=== PATIENT | female | born 1990 | race Caucasian/White ===

== ENCOUNTER 2019-08-09 01:56 | Emergency (ER) | payer MEDICARE, OTHER ==
[~2019-08-09] VITALS: Ht 149.9 cm; Wt 44.5 kg
--- NOTE | 2019-08-09 02:20 | PHYS DOC ---
Past History Past Medical History: No Pertinent History Past Surgical History: Alcohol Use: None Adult General Chief Complaint Chief Complaint: VAGINAL BLEEDING ...." I started having cramping like a peroid.. and I think I am about 5 to 7 weeks ... and I started bleeding tonight... " HPI HPI Patient is a 29 year old female who presents with above hx and complaints of vaginal spotting. Pt. estimates she is 7 weeks by her phone computer calculations. Pt. follows with Dr. Morse. This will be patient's third .. Her two previously pregnancies were delivered by . One due to breech presentation, both pregnancies had decelerations with the contractions and required urgent C-sections. Both pregnancies had dysfunctional bleeding during the course of the . Patient has had approximately 3 lifetime sex partners. Has had 1 previous episode of chlamydia infection. Patient had 1 abnormal Pap exam- follow-up after treatments showed no abnormal cells.. Patient has had recent sexual intercourse including use a inter-vaginal vibrator. Patient has started vitamins. There is no family history coagulopathy, however patient has had problems with bleeding after C-sections. Patient denies history immunosuppression. No recent travel. No history of trauma. Review of Systems Review of Systems Constitutional: Denies fever or chills [] Eyes: Denies change in visual acuity, redness, or eye pain [] HENT: Denies nasal congestion or sore throat [] Respiratory: Denies cough or shortness of breath [] Cardiovascular: No additional information not addressed in HPI [] GI: Complaints of abdominal pain- crampin, and vaginal spotting, Pt. denies nausea, vomiting, bloody stools or diarrhea [] : Denies dysuria or hematuria [] Musculoskeletal: Denies back pain or joint pain [] Integument: Denies rash or skin lesions [] Neurologic: Denies headache, focal weakness or sensory changes [] Endocrine: Denies polyuria or polydipsia [] All other systems were reviewed and found to be within normal limits, except as documented in this note. Family History Family History Noncontributory Current Medications Current Medications See nursing for home meds Allergies Allergies Allergies Coded Allergies Type Severity Reaction Last Updated Verified No Known Drug Allergies 08/09/19 No Physical Exam Physical Exam Constitutional: Mild emotional distress, non-toxic appearance. [] HENT: Normocephalic, atraumatic, bilateral external ears normal, oropharynx moist, no oral exudates, nose normal. [] Eyes: PERRLA, EOMI, conjunctiva normal, no discharge. [] Neck: Normal range of motion, no tenderness, supple, no stridor. [] Cardiovascular:Heart rate regular rhythm, no murmur [] Lungs & Thorax: Bilateral breath sounds equal at apex auscultation [] Abdomen: Bowel sounds normal, soft, mild pelvic tenderness, no masses, no pulsatile masses. Old scar. Vaginal exam shows some spotting from os and some old blood. Mildly abnormal cervix. Rectal hard stool in rectal vault. Skin: Warm, dry, no erythema, no rash. [] Back: No tenderness, no CVA tenderness. [] Extremities: No tenderness, no cyanosis, no clubbing, ROM intact, no edema. [] DTRs are +2 at patella and brachial. No Psoas sign. Neurologic: Alert and oriented X 3, normal motor function, normal sensory function, no focal deficits noted. [] Psychologic: Affect anxious, judgement normal, mood normal. [] Current Patient Data Vital Signs Vital Signs Date Time Temp Pulse Resp B/P (MAP) Pulse Ox O2 Delivery O2 Flow Rate FiO2 08/09/19 02:02 98.3 71 16 113/74 (87) 96 Room Air EKG EKG [] Radiology/Procedures Radiology/Procedures [][address] [address] IMAGING REPORT Signed PATIENT: HAROON MELO ACCOUNT: [id number] : 1990 LOCATION: ER AGE: 29 SEX: F EXAM STATUS: REG ER ORD. PHYSICIAN: PAUL JORGE MD REASON: Est. 5-7 weeks gravid, bleeding, cramping PROCEDURE: PREG 1ST TRIMESTER OB ultrasound less than 14 weeks and transvaginal OB ultrasound HISTORY: Vaginal bleeding and positive test Sonographic examination of the was perform a transabdominal and endovaginal technique. Multiple static images were obtained OB ultrasound less than 14 weeks transabdominal: The uterus appears normal. The endometrium measures 9 mm in thickness. The junctional zone is discrete. There is no gestational sac. The ovaries appear normal with normal blood flow. Transvaginal OB ultrasound: There is no seen. IMPRESSION: No sonographic evidence of . Recommend correlation with serial quantitative beta hCG. This could be an early or blighted ovum or miscarriage. If the continues a short-term follow-up ultrasound must be performed in order to document a viable intrauterine . Electronically signed by: Refugio Medrano III, MD (08/09/2019 3:59 AM) [id number] DICTATED AND SIGNED BY: REFUGIO MEDRANO III, MD DATE: 08/09/19 0359 CC: PAUL JORGE MD; JODI MORSE MD ~ Course & Med Decision Making Course & Med Decision Making Pertinent Labs and Imaging studies reviewed. (See chart for details) Patient continue pad counts. Patient to follow-up with primary care. Patient take vitamins. Patient follow-up pending cultures. Allow pelvic rest. Pt. to have repeat B-HCG in three days. Take only tylenol for pain. Must follow-up Pt. to take US disc to her OB for furter comparisons. [] Impression- 1. Threaten 2. Anemia Hgb. 11.7\\ 3. B -HCG = 32 4. Blood Type O + Dragon Disclaimer Dragon Disclaimer This electronic medical record was generated, in whole or in part, using a voice recognition dictation system. Departure Departure: Disposition: HOME/RESIDENCE PRIOR TO ADM Condition: STABLE Referrals: JODI MORSE MD (PCP) [place] Disclaimer This chart was dictated in whole or in part using Voice Recognition software in a busy, high-work load, and often noisy Emergency Department environment. It may contain unintended and wholly unrecognized errors or omissions. PAUL JORGE MD Aug 09, 2019 02:20
[2019-08-09] MEDS ORDERED: IV RINGERS SOLUTION,LACTATED 1,000 ML IV SCH (03:00)
[2019-08-09 03:26] LABS: CALCIUM 9.5 mg/dL (8.5-10.1); CREATININE 0.5 mg/dL (0.6-1.0); GFR 146.9; POTASSIUM 3.9 mmol/L (3.5-5.1)
[2019-08-09 03:28] LABS: BARBITURATES NEG (NEG); BENZODIAZEPINES NEG (NEG); CANNABINOIDS NEG (NEG); COCAINE NEG (NEG); METHADONE NEG (NEG); OPIATES POS (NEG); PHENCYCLIDINE NEG (NEG)
[2019-08-09 03:32] LABS: ALBUMIN 3.9 g/dL (3.4-5.0); DIRECT BILIRUBIN 0.1 mg/dL (0.0-0.2); TOTAL BILIRUBIN 0.2 mg/dL (0.2-1.0); TOTAL PROTEIN 7.5 g/dL (6.4-8.2)
[2019-08-09 03:34] LABS: BASO % 1 % (0-3); EOS # 0.3 x10^3/uL (0.0-0.7); EOS % 3 % (0-3); HEMATOCRIT 35.3 % (36.0-47.0); HEMOGLOBIN 11.7 g/dL (12.0-15.5); LYMPH # 3.5 x10^3/uL (1.0-4.8); LYMPH % 37 % (24-48); MEAN CORPUSCULAR HEMOGLOBIN 30 pg (25-35); MEAN CORPUSCULAR HGB CONC 33 g/dL (31-37); MEAN CORPUSCULAR VOLUME 91 fL (79-100); MONO # 0.8 x10^3/uL (0.0-1.1); MONO % 8 % (0-9); NEUT # 4.9 x10^3uL (1.8-7.7); NEUT % 52 % (31-73); PLATELET COUNT 387 x10^3/uL (140-400); RED BLOOD COUNT 3.91 x10^6/uL (3.50-5.40); WHITE BLOOD COUNT 9.5 x10^3/uL (4.0-11.0)
[2019-08-09 03:36] LABS: BACTERIA,URINE 0 /HPF (0-FEW); BILIRUBIN,URINE NEG (NEG); CLARITY,URINE HAZY; COLOR,URINE YELLOW; GLUCOSE,URINE NEG (NEG); NITRITE,URINE NEG (NEG); RBC,URINE >40 /HPF (0-2); SQUAMOUS EPITHELIAL CELL,UR FEW /LPF; UROBILINOGEN,URINE 0.2 mg/dL (0.2 mg/dL); WBC,URINE OCC /HPF (0-4)
[2019-08-09 03:41] LABS: AMPHETAMINE/METHAMPHETAMINE NEG (NEG)
--- NOTE | 2019-08-09 04:02 | RAD ---
OB ultrasound less than 14 weeks and transvaginal OB ultrasound HISTORY: Vaginal bleeding and positive test Sonographic examination of the was perform a transabdominal and endovaginal technique. Multiple static images were obtained OB ultrasound less than 14 weeks transabdominal: The uterus appears normal. The endometrium measures 9 mm in thickness. The junctional zone is discrete. There is no gestational sac. The ovaries appear normal with normal blood flow. Transvaginal OB ultrasound: There is no seen. IMPRESSION: No sonographic evidence of . Recommend correlation with serial quantitative beta hCG. This could be an early or blighted ovum or miscarriage. If the continues a short-term follow-up ultrasound must be performed in order to document a viable intrauterine . Electronically signed by: Kush Elam III, MD (08/09/2019 3:59 AM) [id number]
[2019-08-09 05:04] VITALS: BP 116/83
[2019-08-10 19:07] LABS: CHLAMYDIA PROBE Negative (Negative)
== END 2019-08-09 05:07 | disposition home or self-care (01) ==
LOC: ER 01:56
DX: O20.0 Threatened abortion (principal); D64.89 Other specified anemias; Z3A.01 Less than 8 weeks gestation of pregnancy
CPT/HCPCS: 36415; 76801; 80048; 80076; 80307; 81001; 81025; 84443; 84702; 85025; 85610; 85730; 86705; 86709; 86803; 86900; 86901; 87340; 87491; 87591; 99285; J7120; Q0111

== ENCOUNTER 2020-03-20 19:29 | Emergency (ER) | payer MEDICARE, OTHER ==
[~2020-03-20] VITALS: Ht 149.9 cm; Wt 44.5 kg
[2020-03-20 19:35] VITALS: BP 125/92
--- NOTE | 2020-03-20 19:51 | PHYS DOC ---
Past History Past Medical History: No Pertinent History Past Surgical History: Alcohol Use: None General Adult EDM: Chief Complaint: MECHANICAL FALL HPI: HPI: The history is obtained from the patient. Patient is a 29-year-old female estimated 23 weeks who presents with chief complaint of left knee pain. Patient states she was walking her new dog who was on a leash. States the dog quickly pulled away from her causing her to twist her left knee. She denies falling to the ground or hitting her head. She denies any abdominal pain or syncope. She denies any vaginal bleeding or discharge. She has no related complaints she states. She states she has had medial left knee pain since the injury occurred approximately 1 hour ago. She has not tried medicine prior to arrival. States the pain seems to be worse when she bears weight. Denies any ankle or hip pain. Is any swelling to the area. Denies any overlying skin changes. States the pain is aching and constant in nature. No other complaints. Review of Systems: Review of Systems: Constitutional: Denies fever or chills Eyes: Denies change in visual acuity HENT: Denies nasal congestion or sore throat Respiratory: Denies cough or shortness of breath Cardiovascular: Denies chest pain or edema GI: Denies abdominal pain, nausea, vomiting, bloody stools or diarrhea : Denies dysuria Musculoskeletal: Positive for knee pain Integument: Denies rash Neurologic: Denies headache, focal weakness or sensory changes Endocrine: Denies polyuria or polydipsia Lymphatic: Denies swollen glands Psychiatric: Denies depression or anxiety Heart Score: Risk Factors: Risk Factors: DM, Current or recent (<one month) smoker, HTN, HLP, family history of CAD, obesity. Risk Scores: Score 0 - 3: 2.5% MACE over next 6 weeks - Discharge Home Score 4 - 6: 20.3% MACE over next 6 weeks - Admit for Clinical Observation Score 7 - 10: 72.7% MACE over next 6 weeks - Early Invasive Strategies Allergies: Allergies: Allergies Coded Allergies Type Severity Reaction Last Updated Verified No Known Drug Allergies 08/09/19 No Physical Exam: PE: Constitutional: Well developed, well nourished, no acute distress, non-toxic appearance. [] HENT: Normocephalic, atraumatic, bilateral external ears normal, oropharynx moist, no oral exudates, nose normal. [] Eyes: PERRLA, EOMI, conjunctiva normal, no discharge. [] Neck: Normal range of motion, no tenderness, supple, no stridor. [] Cardiovascular:Heart rate regular rhythm, no murmur [] Lungs & Thorax: Bilateral breath sounds clear to auscultation [] Abdomen: Bowel sounds normal, soft, no tenderness, no masses, no pulsatile masses. [] Skin: Warm, dry, no erythema, no rash. [] Back: No tenderness, no CVA tenderness. [] Extremities: Left Knee Erythema not present. Warmth not present. Effusion not present. Anterior drawer is intact. Posterior drawer is intact. Varus testing is intact. Valgus testing is intact. Knee extension is intact. DNVI (DP pulse 2+, plantar and dorsiflexion intact, light touch intact. Mild tenderness palpation over the proximal medial aspect of the left knee. Neurologic: Alert and oriented X 3, normal motor function, normal sensory function, no focal deficits noted. [] Psychologic: Affect normal, judgement normal, mood normal. [] EKG: EKG: [] Radiology/Procedures: Radiology/Procedures: [place] [address] IMAGING REPORT Signed PATIENT: HAROON MELO ACCOUNT: [id number] : 1990 LOCATION: ER AGE: 29 SEX: F EXAM STATUS: REG ER ORD. PHYSICIAN: AARON OTERO DO REASON: Medial left knee pain, injury today PROCEDURE: KNEE LEFT 3V EXAM: LEFT KNEE, 3 VIEWS. HISTORY: Medial left knee pain after injury. COMPARISON: None. FINDINGS: No fractures are identified. Joint spaces are maintained. Alignment is normal. There is no joint effusion. IMPRESSION: 1. No fracture or joint effusion. Electronically signed by: Nelyl Sheridan MD (03/20/2020 8:04 PM) [facility] DICTATED AND SIGNED BY: KARLA SHERIDAN MD DATE: 03/20/202003 CC: JODI MORSE MD; AARON OTERO DO ~ [] Course & Med Decision Making: Course & Med Decision Making Pertinent Labs and Imaging studies reviewed. (See chart for details) [] Patient is a well-appearing 29-year-old female who presents with a chief complaint of left knee injury sustained just prior to arrival. She does state that she is 23 weeks but has no related complaints. Plain film imaging of the left knee was obtained and reveals no acute osseous abnormality on my interpretation. She may experience a sprain. She was given an Luca wrap. She was instructed to use Tylenol at home. She was instructed to follow-up with her primary care physician in the next 2 to 3 days. Stable for discharge home. Dragon Disclaimer: Dragon Disclaimer: This electronic medical record was generated, in whole or in part, using a voice recognition dictation system. Departure Departure: Impression: Primary Impression: Left knee injury Qualified Codes: S89.92XA - Unspecified injury of left lower leg, initial encounter Disposition: HOME/RESIDENCE PRIOR TO ADM Condition: STABLE Referrals: JODI MORSE MD (PCP) Patient Instructions: Knee Sprain Additional Instructions: Please follow-up with your primary care physician in the next 2 to 3 days. Scripts Acetaminophen (TYLENOL) 325 Mg Tablet 1000 MG PO TID PRN PRN for PAIN for 7 Days, #21 TAB Prov: AARON OTERO DO 03/20/20 Justification of Admission: Justification of Admission: Justification of Admission Dx: N/A ARAON OTERO DO Mar 20, 2020 19:51
[2020-03-20] MEDS ORDERED: ACETAMINOPHEN 500 MG TABLET PO ONE (20:00)
[2020-03-20] MEDS ORDERED: ACET325T9 PO (20:07)
--- NOTE | 2020-03-20 20:07 | RAD ---
EXAM: LEFT KNEE, 3 VIEWS. HISTORY: Medial left knee pain after injury. COMPARISON: None. FINDINGS: No fractures are identified. Joint spaces are maintained. Alignment is normal. There is no joint effusion. IMPRESSION: 1. No fracture or joint effusion. Electronically signed by: Nelly Sheridan MD (03/20/2020 8:04 PM) [facility]
== END 2020-03-20 20:28 | disposition home or self-care (01) ==
LOC: ER 19:29
DX: O9A.212 Injury, poisoning and certain other consequences of external causes complicating pregnancy, second trimester (principal); Z3A.23 23 weeks gestation of pregnancy; X50.1XXA Overexertion from prolonged static or awkward postures, initial encounter; Y93.01 Activity, walking, marching and hiking; Y92.89 Other specified places as the place of occurrence of the external cause; Y99.8 Other external cause status
CPT/HCPCS: 73562; 99283

== ENCOUNTER 2020-04-26 22:06 | Emergency (ER) | payer MEDICARE, OTHER ==
[~2020-04-26] VITALS: Ht 149.9 cm; Wt 44.5 kg
[~2020-04-26 22:06] MED LIST: ACET325T9 PO
[2020-04-26] MEDS ORDERED: IV RINGERS SOLUTION,LACTATED 1,000 ML IV ONE ×2 (22:30→23:45)
--- NOTE | 2020-04-26 22:36 | PHYS DOC ---
Past History Past Medical History: No Pertinent History Past Surgical History: Alcohol Use: None Adult General Chief Complaint Chief Complaint: BACK PAIN - NO INJURY HPI HPI Patient is a 30-year-old who presents for right-sided lower back pain. She reports being 29 weeks without any known complications. She has had issues with sciatica in the past on contralateral side during prior and states presenting pain feels like that today. She has no other red flag signs or symptoms for back pain such as fever, IV drug use, steroid use, loss of bladder and/or bowel function, saddle anesthesia etc. Regarding patient's OB history, she has not had any other concerning signs or symptoms such as shortness of breath, chest pain, abdominal pain, lack of palpable movement, vaginal discharge, vaginal bleeding, or loss of fluids. Patient reports taking x2 unknown strength Tylenol prior to arrival without significant relief prompting her to seek care today Review of Systems Review of Systems Fourteen body systems of review of systems have been reviewed. See HPI for pertinent positives and negative responses, other garcia all other systems are negative, non-pertinent or non-contributory Current Medications Current Medications Current Medications Medications (Trade) Dose Ordered Sig/Zahida Start Time Stop Time Status Last Admin Dose Admin Lactated Ringer's 1,000 ml @ 250 mls/hr 1X ONCE 04/26/20 22:30 04/27/20 02:29 Allergies Allergies Allergies Coded Allergies Type Severity Reaction Last Updated Verified No Known Drug Allergies 08/09/19 No Physical Exam Physical Exam Constitutional: Well developed, well nourished, no acute distress, non-toxic appearance. HENT: Normocephalic, atraumatic, bilateral external ears normal, oropharynx moist, no oral exudates, nose normal. Eyes: PERRLA, EOMI, conjunctiva normal, no discharge. Neck: Normal range of motion, no tenderness, supple, no stridor. Cardiovascular: Heart rate regular, sinus rhythm, no murmurs rubs or gallops Lungs & Thorax: Bilateral breath sounds clear to auscultation Abdomen: Bowel sounds normal, gravid abdomen soft, no tenderness, no masses, no pulsatile masses. Nonsurgical abdomen, no peritoneal signs. heart tones 151 Skin: Warm, dry, no erythema, no rash. Back: No spinous process/midline tenderness, no CVA tenderness. Right-sided deep lower back pain that radiates down posterior right leg with origin of pain being located over right sacral sulcus/gluteal muscle, Extremities: No tenderness, no cyanosis, no clubbing, ROM intact, no edema. Neurologic: Alert and oriented X 3, lower extremity testing showed normal motor & sensory function, no focal deficits noted. Antalgic gait secondary to pain and gravid status Psychologic: Affect normal, judgement normal, mood normal. Current Patient Data Vital Signs Vital Signs Date Time Temp Pulse Resp B/P (MAP) Pulse Ox O2 Delivery O2 Flow Rate FiO2 04/27/20 00:45 87 20 102/62 (75) 99 Room Air 04/26/20 22:15 98.0 EKG EKG [] Radiology/Procedures Radiology/Procedures [] Heart Score Risk Factors: Risk Factors: DM, Current or recent (<one month) smoker, HTN, HLP, family h istory of CAD, obesity. Risk Scores: Risk Factors: DM, Current or recent (<one month) smoker, HTN, HLP, family history of CAD, obesity. Course & Med Decision Making Course & Med Decision Making Nontoxic ambulatory patient seen on arrival ABCs grossly nonconcerning Comprehensive history and physical examination obtained, no obvious emergent and/or surgical findings Discussed most likely diagnosis of sciatica versus other self-limiting causes of lower back pain in female IV fluid rehydration, heating pad and mild dose of IV narcotic pain medication administered with significant relief in patient's symptoms I did disclose this might be an acute presentation more concerning pathology and thus, close PCP follow-up within upcoming 24 to 48 hours is advised I discussed that she would benefit from outpatient referral to physical therapist/osteopath versus other for nonmedication-based approach to her lower back pain as she progresses throughout Strict return precautions were discussed with good understanding by patient, all questions and concerns addressed prior to ER departure in stable condition Dragon Disclaimer Dragon Disclaimer This electronic medical record was generated, in whole or in part, using a voice recognition dictation system. Departure Departure: Impression: Primary Impression: Sciatica of right side Additional Impression: and not yet delivered in third trimester Disposition: 01 DC HOME SELF CARE/HOMELESS Condition: STABLE Referrals: JODI MORSE MD (PCP) Patient Instructions: Sciatica, Sciatica with Rehab-SportsMed Additional Instructions: As discussed prior to ER departure, please call your primary care physician and [employer] physician first thing in the morning to schedule follow-up in outpatient setting in upcoming 48 hours If any concerning signs or symptoms represent themselves prior to outpatient follow-up please do not hesitate to come back for repeat evaluation It was a pleasure to take care of you this evening and I wish you a speedy recovery Problem Qualifiers JULEE CARDOSO DO Apr 26, 2020 22:36
[2020-04-26] MEDS ORDERED: MORPHINE SULFATE 4 MG/ML DISP.SYRIN. IV ONE (23:30)
[2020-04-27 00:45] VITALS: BP 102/62
== END 2020-04-27 01:00 | disposition home or self-care (01) ==
LOC: ER 22:06
DX: O26.893 Other specified pregnancy related conditions, third trimester (principal); M54.41 Lumbago with sciatica, right side; Z3A.29 29 weeks gestation of pregnancy; Z98.890 Other specified postprocedural states
CPT/HCPCS: 96361; 96374; 99283; J2270; J7120